=== PATIENT | female | born 1980 | race Asian ===

== ENCOUNTER 2020-03-08 12:33 | Inpatient (IN) | payer MEDICAID ==
[~2020-03-08] VITALS: Ht 162.6 cm; Wt 57.2 kg
[2020-03-08 12:55] VITALS: Ht 162.6 cm; Wt 57.2 kg
[2020-03-08 14:27] LABS: BASOPHIL % 0.7 % (0-2); PLATELET COUNT 241 x10^3mcL (130-400); RED CELL DISTRIBUTION WIDTH 13.5 % (11.5-14.5)
[2020-03-08 14:31] LABS: CALCIUM 8.6 mg/dL (8.5-10.1); CARBON DIOXIDE 26.4 mmol/L (21-32); CHLORIDE SERUM 103 mmol/L (98-107); CREATININE SERUM 0.6 mg/dL (0.6-1.0); GFR1 > 60 mL/min; GLUCOSE SERUM 87 mg/dL (74-106); SODIUM SERUM 141 mmol/L (136-145)
[2020-03-08 14:38] LABS: ALBUMIN 3.8 g/dL (3.4-5.0); ALKALINE PHOSPHATASE 72 U/L (46-116); ALT/SGPT 19 U/L (14-59); AST/SGOT 18 U/L (15-37); BILIRUBIN TOTAL 0.5 mg/dL (0.20-1.00); MAGNESIUM 2.1 mg/dL (1.8-2.4); TOTAL PROTEIN, SERUM 7.6 g/dL (6.4-8.2)
[2020-03-08 20:25] VITALS: BP 129/79
[2020-03-09 05:38] VITALS: BP 111/67
[2020-03-09 07:15] LABS: BASOPHIL % 0.4 % (0-2); PLATELET COUNT 206 x10^3mcL (130-400); RED CELL DISTRIBUTION WIDTH 13.6 % (11.5-14.5)
[2020-03-09 07:36] LABS: CALCIUM 8.6 mg/dL (8.5-10.1); CARBON DIOXIDE 25.9 mmol/L (21-32); CHLORIDE SERUM 106 mmol/L (98-107); CREATININE SERUM 0.5 mg/dL (0.6-1.0); GFR1 > 60 mL/min; GLUCOSE SERUM 95 mg/dL (74-106); MAGNESIUM 2.2 mg/dL (1.8-2.4); PHOSPHOROUS 3.9 mg/dL (2.5-4.9); POTASSIUM SERUM 3.4 mmol/L (3.5-5.1); SODIUM SERUM 140 mmol/L (136-145)
[2020-03-09 08:49] VITALS: BP 108/61
[2020-03-09 12:11] VITALS: BP 109/49
[2020-03-09 12:38] LABS: microscopic required? NO
[2020-03-09 12:49] LABS: UA SPECIFIC GRAVITY >=1.030 (1.005-1.035); urine erythrocyte NEGATIVE (NEGATIVE)
[2020-03-09 12:59] LABS: AMPHETAMINE QUAL UR NONE DETECTED (See below)
[2020-03-09 16:28] VITALS: BP 102/41
[2020-03-09] MEDS ORDERED: IBU600 M2 PO (17:01)
[2020-03-09] MEDS ORDERED: FLE10 PO (17:02)
[2020-03-09] MEDS ORDERED: GRALISE600 MG PO (17:07)
[2020-03-09 17:43] VITALS: BP 102/41
== END 2020-03-09 18:06 | disposition home or self-care (01) | DRG 347 ==
LOC: ED 12:33 → MU 17:45
PROVIDERS: Emergency Medicine; ADMIT Student in an Organized Health Care Education/Training Program; ATTEND Student in an Organized Health Care Education/Training Program
DX: M62.830 Muscle spasm of back (principal); M25.551 Pain in right hip
CPT/HCPCS: G0378; J1885; J2270; J3010; J7030; Q0092

== ENCOUNTER 2020-05-29 22:14 | Emergency (ER) | payer BC ==
[~2020-05-29] VITALS: Ht 162.6 cm; Wt 54.4 kg
[~2020-05-29 22:14] MED LIST: FLE10 PO; GRALISE600 MG PO; IBU600 M2 PO
[2020-05-29 22:21] VITALS: Ht 162.6 cm; Wt 54.4 kg
[2020-05-30 01:57] VITALS: BP 134/74
== END 2020-05-30 01:36 | disposition home or self-care (01) ==
LOC: ED 22:14
DX: M51.26 Other intervertebral disc displacement, lumbar region (principal)
CPT/HCPCS: J1100; J1885; J3010